=== PATIENT | male | born 2000 | race Caucasian/White ===

== ENCOUNTER 2024-01-16 14:40 | Outpatient (CLI) | payer BC, SELFPAY ==
--- NOTE | 2024-01-16 15:18 | MR_ITS ---
WS: [email or web address] MRI OF THE RIGHT LOWER EXTREMITY WITHOUT AND WITH GADOLINIUM ENHANCEMENT. INDICATION: RIGHT lower leg pain TECHNIQUE: Coronal T1 and STIR axial T2 fat-sat axial PD fat-sat sagittal STIR postgadolinium imaging was obtained FINDINGS: Normal bone marrow signal in the RIGHT tibia. Normal bone marrow signal of the fibula. Norm al visualized subcutaneous soft tissues. No abnormal gadolinium enhancement. No evidence of osteomyel itis. No suspicious cystic or solid lesions in the RIGHT lower extremity. No fluid collections. No ot her suspicious abnormalities. MR/MR lower leg RT wo/w con [id number] IMPRESSION: No suspicious abnormalities RIGHT lower extremity
[2024-01-16] MEDS: gadobenate dimeglumine 20 mL vial 10 ML IV (16:40)
== END 2024-01-16 14:41 | disposition home or self-care (01) ==
LOC: RAD 14:40
PROVIDERS: Visit Provider Nurse Practitioner
DX: M79.661 Pain in right lower leg (principal); M79.606 Pain in leg, unspecified; R29.898 Other symptoms and signs involving the musculoskeletal system
CPT/HCPCS: 73720; A9577

== ENCOUNTER 2024-04-11 23:15 | Emergency (ER) | payer BC, SELFPAY ==
[2024-04-11 23:24] VITALS: BP 111/69; PULSE 93; RESP 16; TEMP 36.6; O2SAT 98; BMI 16.2
--- NOTE | 2024-04-12 00:37 | CTR_ITS ---
PROCEDURE INFORMATION: Exam: CT Lumbar Spine Without Contrast Exam date and time: 04/12/2024 12:48 AM Age: 23 years old Clinical indication: Weakness; Patient HX: C/O worsening low back pain and increased walking difficulty over the last two months. Recent episode of urinary incontinence. PT scheduled for ms workup starting Sunday. ; Additional info: Low back pain, can't walk, one episode of urinary incontinen TECHNIQUE: Imaging protocol: Computed tomography of the lumbar spine without contrast. Radiation optimization: All CT scans at this facility use at least one of these dose optimization techniques: automated exposure control; mA and/or kV adjustment per patient size (includes targeted exams where dose is matched to clinical indication); or iterative reconstruction. COMPARISON: No relevant prior studies available. RADIATION DOSE METRICS: Total DLP (mGy-cm): 314.95 FINDINGS: Bones/joints: No acute fracture. Normal alignment. L1-L2: No significant disc bulge or herniation. No severe spinal canal stenosis. No significant neural foraminal narrowing. L2-L3: No significant disc bulge or herniation. No severe spinal canal stenosis. No significant neural foraminal narrowing. L3-L4: No significant disc bulge or herniation. No severe spinal canal stenosis. No significant neural foraminal narrowing. L4-L5: No significant disc bulge or herniation. No severe spinal canal stenosis. No significant neural foraminal narrowing. L5-S1: No significant disc bulge or herniation. No severe spinal canal stenosis. No significant neural foraminal narrowing. Soft tissues: Unremarkable. CT/CT lumbar spine wo con* [id number] IMPRESSION: Unremarkable spine.
--- NOTE | 2024-04-12 00:39 | W.ED.BACK ---
Documented by User: [email or web address] Noble 04/14/24 17:19 HPI - Back Pain/Injury General: Chief Complaint: Back Pain/Injury Stated Complaint: Back pain into leg, can barely walk Time Seen by Provider: 04/12/24 00:20 Source: patient Mode of arrival: ambulatory Limitations: no limitations History of Present Illness: Patient is a 23-year-old male presents the emergency department with worsening low back pain over the past month or so. Patient has MRI brain scheduled for Sunday for assessment of possible MS, as there is a family history and patient has had associated bilateral weakness of the lower extremities that has been associated with his pain. He has required the use of a walker, and even then this only allows him to shuffle short distances. He also notes 1 episode of urinary incontinence while he was sleeping. He notes distal paresthesias, and with his pain is noting that it is diffusely across the low back. He states that it radiates down his right leg to his knee occasionally. For pain, states that he has been given [place], tramadol, Toradol, muscle relaxers, and steroids and that all these have ever done is take the edge off. He states primarily he gets the most relief from heat to the low back. No bowel incontinence, fevers, paralysis, or other symptoms at this time. MD elicited complaint: back pain Onset (ago): month(s) Timing: constant Severity: severe Location: lumbar spine, right lower back and left lower back Radiation: right upper leg Exacerbating factors: movement and walking Associated symptoms: Reports difficulty walking; Deny abdominal pain, chills, dysuria, fatigue, fever(s), nausea or vomiting Related Data Previous Rx's Medication Instructions Recorded hydrocodone 5 mg-acetaminophen 325 1 tab PO Q8H PRN pain #7 tabs 04/12/24 mg tablet ketorolac 10 mg tablet 10 mg PO TID PRN pain #10 tabs 04/12/24 Allergies Allergy/AdvReac Type Severity Reaction Status Date / Time codeine Allergy ALGY-Rash Verified 04/11/24 23:33 Review of Systems General: Reports: 10 or more systems reviewed and unremarkable except in HPI and below Const: Denies: fever(s), chills or fatigue Eyes: Denies: change in vision ENMT: Denies: throat pain, ear or mastoid pain or nasal discharge Card: Denies: chest pain, palpitations, swelling of feet/ankles or lightheadedness Resp: Denies: dyspnea, productive cough or wheezing GI: Denies: abdominal pain, nausea, vomiting, diarrhea or constipation : Denies: flank pain, difficulty urinating, dysuria or urinary frequency Musc: Reports: back pain, extremity pain (Right lower) and muscle weakness; Denies: neck pain or joint pain Skin/Breast: Denies: rash Neuro: Reports: weakness in extremities, sensory changes (Distal paresthesias) and difficulty walking; Denies: headache(s) or numbness in extremities Physical Exam Const: COMMON NORMALS: no acute distress, patient oriented x3, no limitations and alert GENERAL APPEARANCE: cooperative NUTRITIONAL APPEARANCE: thin ORIENTATION/CONSCIOUSNESS: Yes awake HENMT: COMMON NORMALS: normocephalic and atraumatic HEAD & SCALP: normocephalic and atraumatic FACE & SINUS: normal facial exam Eye: COMMON NORMALS: Equal, round and reactive pupils present, EOMs intact bilaterally and conjunctivae normal CONJUNCTIVA: Yes conjunctivae normal PUPIL: Yes Equal, round and reactive pupils present Neck/C-Spine: COMMON NORMALS: full ROM and no meningeal signs Resp: COMMON NORMALS: normal respiratory effort, No retractions, No use of accessory muscles and clear to auscultation bilaterally AUSCULTATION: clear to auscultation bilaterally Cardio: COMMON NORMALS: regular rate, regular rhythm, S1 normal heart sound present, S2 normal heart sound present, No gallops present (Cardio), No murmurs present (Cardio), No rub (Cardio) and Peripheral pulses 2+ throughout RATE: regular rate RHYTHM: regular rhythm HEART SOUNDS: S1 normal heart sound present and S2 normal heart sound present PERIPHERAL PULSES: Peripheral pulses 2+ throughout Back/Pelvis: OTHER: Reproducible tenderness to palpation of the lumbar spine as well as to the bilateral paralumbar muscles with no signs of trauma or deformity. Negative straight leg raise testing. Extremity: COMMON NORMALS: normal to inspection, full ROM, capillary refill normal, no joint enlargement, no clubbing, cyanosis or edema and no pedal edema NARRATIVE EXTREMITY EXAM: 2+ dorsalis pedis and posterior tibial pulses bilaterally. Neuro: COMMON NORMALS: patient oriented x3, moves all extremities, no focal motor deficits, no sensory deficits noted and deep tendon reflexes 2+ bilaterally SENSORIUM/ORIENTATION: Yes alert MENINGEAL SIGNS: Yes no meningeal signs MOTOR EXAM: 5/5 motor strength present throughout, Pronator motor function not present, Motor fasciculations not present and Normal motor muscle tone present throughout OTHER: Mild intention tremor Skin: COMMON NORMALS: no rashes or lesions noted GENERAL SKIN EXAM: no rashes or lesions noted Course Vital Signs: Vital signs: Vital Signs Temperature 97.8 F 04/11/24 23:24 Pulse Rate 71 04/12/24 02:58 Respiratory Rate 17 04/12/24 02:58 Blood Pressure 118/77 04/12/24 02:58 Pulse Oximetry 98 04/12/24 02:58 Oxygen Delivery Me thod Room Air 04/12/24 01:15 MDM - Back Pain/Injury Labs 04/12/24 01:04 04/12/24 01:04 Radiology Impressions Lumbar Spine CT 04/12/24 00:37 IMPRESSION: Unremarkable spine. Laboratory Results WBC 16.29 10^3/uL (3.29-11.43) H 04/12/24 01:04 RBC 4.54 10^6/uL (3.85-5.65) 04/12/24 01:04 Hgb 14.40 g/dL (11.27-16.99) 04/12/24 01:04 Hct 40.0 % (37-53) 04/12/24 01:04 MCV 88.1 fl (82-101) 04/12/24 01:04 MCH 31.7 pg (27-33) 04/12/24 01:04 MCHC 36.0 g/dL (30-55) 04/12/24 01:04 RDW 12.3 % (12.1-15.1) 04/12/24 01:04 Plt Count 248 10^3/cmm (157-399) 04/12/24 01:04 MPV 9.5 fL (7.4-10.4) 04/12/24 01:04 Neut % (Auto) 71.8 % 04/12/24 01:04 Lymph % (Auto) 19.3 % 04/12/24 01:04 Kay % (Auto) 7.0 % 04/12/24 01:04 Eos % (Auto) 0.9 % 04/12/24 01:04 Baso % (Auto) 0.4 % 04/12/24 01:04 Neut # (Auto) 11.70 10^3/uL (1.8-7.7) H 04/12/24 01:04 Lymph # (Auto) 3.1 10^3/uL (0.8-4.8) 04/12/24 01:04 Kay # (Auto) 1.1 10^3/uL (0.2-0.9) H 04/12/24 01:04 Eos # (Auto) 0.2 10^3/uL (0.0-0.8) 04/12/24 01:04 Baso # (Auto) 0.1 10^3/uL (0.0-0.1) 04/12/24 01:04 Nucleated RBC % (auto) 0 % 04/12/24 01:04 Nucleated RBCs # 0.0 /100WBC 04/12/24 01:04 ESR < 1 mm/hr (0-10) 04/12/24 01:04 Sodium 140 mmol/L (136-145) 04/12/24 01:04 Potassium 3.9 mmol/L (3.5-5.1) 04/12/24 01:04 Chloride 101 mmol/L (98-107) 04/12/24 01:04 Carbon Dioxide 30 mmol/L (22-29) H 04/12/24 01:04 Anion Gap 12.9 (5-19) 04/12/24 01:04 BUN 8 mg/dL (6-20) 04/12/24 01:04 Creatinine 0.8 mg/dL (0.7-1.2) 04/12/24 01:04 GFR Calculation 120.9 mL/min (90-130) 04/12/24 01:04 Glucose 100 mg/dL (65-115) 04/12/24 01:04 Calculated Osmolality 288 mOsm/kg (285-295) 04/12/24 01:04 Calcium 9.8 mg/dL (8.5-10.5) 04/12/24 01:04 Total Bilirubin 0.2 mg/dL (0.15-1.2) 04/12/24 01:04 AST 28 U/L (0-40) 04/12/24 01:04 ALT 35 U/L (0-41) 04/12/24 01:04 Alkaline Phosphatase 74 U/L (40-130) 04/12/24 01:04 C-Reactive Protein 3.0 mg/L (0.0-4.9) 04/12/24 01:04 Total Protein 6.5 g/dL (6.6-8.7) L 04/12/24 01:04 Albumin 4.6 g/dL (3.5-5.2) 04/12/24 01:04 Globulin 1.9 g/dL (1.3-4.6) 04/12/24 01:04 Urine Color Yellow (Yellow) 04/12/24 01:04 Urine Appearance Clear (CLEAR) 04/12/24 01:04 Urine pH 6.5 (5-7) 04/12/24 01:04 Ur Specific [place] 1.005 (1.005-1.030) 04/12/24 01:04 Urine Protein Negative (Negative) 04/12/24 01:04 Urine Glucose (UA) Negative (Normal) 04/12/24 01:04 Urine Ketones Negative (Negative) 04/12/24 01:04 Urine Blood Negative (Negative) 04/12/24 01:04 Urine Nitrate Negative (Negative) 04/12/24 01:04 Urine Bilirubin Negative (Negative) 04/12/24 01:04 Urine Urobilinogen 0.2 mg/dL (Negative) 04/12/24 01:04 Ur Leukocyte Esterase Negative (Negative) 04/12/24 01:04 Urine RBC 0-2 /hpf (0-2) 04/12/24 01:04 Urine WBC 0-5 /hpf (0-5) 04/12/24 01:04 Ur Squamous Epith Cells 0-5 /hpf (0-5) 04/12/24 01:04 Amorphous Sediment Not Reportable 04/12/24 01:04 Urine Bacteria None seen /hpf (NONE) 04/12/24 01:04 Hyaline Casts 0-4 /lpf H 04/12/24 01:04 All radiology interpretation(s) finalized by discharge Discharge Plan Discharge Patient Disposition: Home Clinical Impression: Low back pain Condition: Stable Prescriptions: New hydrocodone-acetaminophen 5-325 mg tablet 1 tab PO Q8H PRN (Reason: pain) Qty: 7 0RF ketorolac 10 mg tablet 10 mg PO TID PRN (Reason: pain) Qty: 10 0RF Discharge Orders: Discharge ED (Routine); Ordered 04/12/24 Ordered By: Romain Dia Patient Instructions: Back Pain (ED), Opioid Safety, Pain Management Activity Restrictions/Additional Instructions: Return for fever, worsening weakness, any other concerning symptoms. Pain medication for severe pain. You may alternate the prescribed medications. Call your doctor on Sunday for follow-up. Coding Level of Care Code ED Emergency Response Officer for Chg Fwd Documented by User: Romain Dia, 04/14/24 18:43 HPI - Back Pain/Injury General: Chief Complaint: Back Pain/Injury Stated Complaint: Back pain into leg, can barely walk Time Seen by Provider: 04/12/24 00:20 Related Data Previous Rx's Medication Instructions Recorded hydrocodone 5 mg-acetaminophen 325 1 tab PO Q8H PRN pain #7 tabs 04/12/24 mg tablet ketorolac 10 mg tablet 10 mg PO TID PRN pain #10 tabs 04/12/24 Allergies Allergy/AdvReac Type Severity Reaction Status Date / Time codeine Allergy ALGY-Rash Verified 04/11/24 23:33 Course Vital Signs: Vital signs: Vital Signs Temperature 97.8 F 04/11/24 23:24 Pulse Rate 71 04/12/24 02:58 Respiratory Rate 17 04/12/24 02:58 Blood Pressure 118/77 04/12/24 02:58 Pulse Oximetry 98 04/12/24 02:58 Oxygen Delivery Me thod Room Air 04/12/24 01:15 MDM - Back Pain/Injury Medical Decision Making This patient was originally seen by Mr. Leela PA-C.? I agree with his history, evaluation, and treatment. This patient has an increased white blood cell count. He has been on steroids, likely the cause. His ESR is less than 1 his CRP is 3. No evidence of abscess by CT, or serum markers. He has an unremarkable spine by CT. Urinalysis is negative. His pain is improved. He will be discharged. Short course of pain medication while he continues his workup. Labs 04/12/24 01:04 04/12/24 01:04 Radiology Impressions Lumbar Spine CT 04/12/24 00:37 IMPRESSION: Unremarkable spine. Laboratory Results WBC 16.29 10^3/uL (3.29-11.43) H 04/12/24 01:04 RBC 4.54 10^6/uL (3.85-5.65) 04/12/24 01:04 Hgb 14.40 g/dL (11.27-16.99) 04/12/24 01:04 Hct 40.0 % (37-53) 04/12/24 01:04 MCV 88.1 fl (82-101) 04/12/24 01:04 MCH 31.7 pg (27-33) 04/12/24 01:04 MCHC 36.0 g/dL (30-55) 04/12/24 01:04 RDW 12.3 % (12.1-15.1) 04/12/24 01:04 Plt Count 248 10^3/cmm (157-399) 04/12/24 01:04 MPV 9.5 fL (7.4-10.4) 04/12/24 01:04 Neut % (Auto) 71.8 % 04/12/24 01:04 Lymph % (Auto) 19.3 % 04/12/24 01:04 Kay % (Auto) 7.0 % 04/12/24 01:04 Eos % (Auto) 0.9 % 04/12/24 01:04 Baso % (Auto) 0.4 % 04/12/24 01:04 Neut # (Auto) 11.70 10^3/uL (1.8-7.7) H 04/12/24 01:04 Lymph # (Auto) 3.1 10^3/uL (0.8-4.8) 04/12/24 01:04 Kay # (Auto) 1.1 10^3/uL (0.2-0.9) H 04/12/24 01:04 Eos # (Auto) 0.2 10^3/uL (0.0-0.8) 04/12/24 01:04 Baso # (Auto) 0.1 10^3/uL (0.0-0.1) 04/12/24 01:04 Nucleated RBC % (auto) 0 % 04/12/24 01:04 Nucleated RBCs # 0.0 /100WBC 04/12/24 01:04 ESR < 1 mm/hr (0-10) 04/12/24 01:04 Sodium 140 mmol/L (136-145) 04/12/24 01:04 Potassium 3.9 mmol/L (3.5-5.1) 04/12/24 01:04 Chloride 101 mmol/L (98-107) 04/12/24 01:04 Carbon Dioxide 30 mmol/L (22-29) H 04/12/24 01:04 Anion Gap 12.9 (5-19) 04/12/24 01:04 BUN 8 mg/dL (6-20) 04/12/24 01:04 Creatinine 0.8 mg/dL (0.7-1.2) 04/12/24 01:04 GFR Calculation 120.9 mL/min (90-130) 04/12/24 01:04 Glucose 100 mg/dL (65-115) 04/12/24 01:04 Calculated Osmolality 288 mOsm/kg (285-295) 04/12/24 01:04 Calcium 9.8 mg/dL (8.5-10.5) 04/12/24 01:04 Total Bilirubin 0.2 mg/dL (0.15-1.2) 04/12/24 01:04 AST 28 U/L (0-40) 04/12/24 01:04 ALT 35 U/L (0-41) 04/12/24 01:04 Alkaline Phosphatase 74 U/L (40-130) 04/12/24 01:04 C-Reactive Protein 3.0 mg/L (0.0-4.9) 04/12/24 01:04 Total Protein 6.5 g/dL (6.6-8.7) L 04/12/24 01:04 Albumin 4.6 g/dL (3.5-5.2) 04/12/24 01:04 Globulin 1.9 g/dL (1.3-4.6) 04/12/24 01:04 Urine Color Yellow (Yellow) 04/12/24 01:04 Urine Appearance Clear (CLEAR) 04/12/24 01:04 Urine pH 6.5 (5-7) 04/12/24 01:04 Ur Specific [place] 1.005 (1.005-1.030) 04/12/24 01:04 Urine Protein Negative (Negative) 04/12/24 01:04 Urine Glucose (UA) Negative (Normal) 04/12/24 01:04 Urine Ketones Negative (Negative) 04/12/24 01:04 Urine Blood Negative (Negative) 04/12/24 01:04 Urine Nitrate Negative (Negative) 04/12/24 01:04 Urine Bilirubin Negative (Negative) 04/12/24 01:04 Urine Urobilinogen 0.2 mg/dL (Negative) 04/12/24 01:04 Ur Leukocyte Esterase Negative (Negative) 04/12/24 01:04 Urine RBC 0-2 /hpf (0-2) 04/12/24 01:04 Urine WBC 0-5 /hpf (0-5) 04/12/24 01:04 Ur Squamous Epith Cells 0-5 /hpf (0-5) 04/12/24 01:04 Amorphous Sediment Not Reportable 04/12/24 01:04 Urine Bacteria None seen /hpf (NONE) 04/12/24 01:04 Hyaline Casts 0-4 /lpf H 04/12/24 01:04 Discharge Plan Discharge Patient Disposition: Home Clinical Impression: Low back pain Condition: Stable Prescriptions: New hydrocodone-acetaminophen 5-325 mg tablet 1 tab PO Q8H PRN (Reason: pain) Qty: 7 0RF ketorolac 10 mg tablet 10 mg PO TID PRN (Reason: pain) Qty: 10 0RF Discharge Orders: Discharge ED (Routine); Ordered 04/12/24 Ordered By: Romain Dia Patient Instructions: Back Pain (ED), Opioid Safety, Pain Management Activity Restrictions/Additional Instructions: Return for fever, worsening weakness, any other concerning symptoms. Pain medication for severe pain. You may alternate the prescribed medications. Call your doctor on Sunday for follow-up. Coding Level of Care Code ED Emergency Response Officer for Malena Beebe
[2024-04-12 01:10] LABS: Basophils # 0.1 10^3/uL (0.0-0.1); Basophils % 0.4 %; Eosinophils # 0.2 10^3/uL (0.0-0.8); Eosinophils % 0.9 %; Lymphocytes # 3.1 10^3/uL (0.8-4.8); Lymphocytes % 19.3 %; Mean Corpuscular Hemoglobin 31.7 pg (27-33); Mean Corpuscular Volume 88.1 fl (82-101); Mean Platelet Volume 9.5 fL (7.4-10.4); Monocytes # 1.1 10^3/uL (0.2-0.9); Neutrophils % 71.8 %; Nucleated Red Blood Cells % 0 %; Platelet Count 248 10^3/cmm (157-399); Red Blood Count 4.54 10^6/uL (3.85-5.65); Red Cell Distribution Width 12.3 % (12.1-15.1); White Blood Count 16.29 10^3/uL (3.29-11.43)
[2024-04-12] MEDS: dexamethasone 10 mg/mL INJ IVP (01:13)
[2024-04-12] MEDS: ketorolac 60 mg/2 mL INJ 30 MG IVP (01:13)
[2024-04-12] MEDS: orphenadrine 30 mg/mL Inj 2 mL 60 MG IVP (01:14)
[2024-04-12 01:15] VITALS: BP 111/64; PULSE 75; RESP 14; O2SAT 98
[2024-04-12 01:22] LABS: Bilirubin Urine Negative (Negative); Blood Urine Negative (Negative); Glucose Urine UA Negative (Normal); Ketones Urine Negative (Negative); Leukocyte Esterase Urine Negative (Negative); Nitrate Urine Negative (Negative); Protein Urine Negative (Negative); Specific Gravity, Urine 1.005 (1.005-1.030); Urine Appearance Clear (CLEAR); Urine Color Yellow (Yellow); Urobilinogen Urine 0.2 mg/dL (Negative); pH Urine 6.5 (5-7)
[2024-04-12 01:27] LABS: Add Urine Microscopic? YES; Bacteria Urine None Seen /hpf; Hyaline Casts Urine 0-4 /lpf; RBC Urine 0-2 /hpf (0-2); Squamous Epithelial Cell Urine 0-5 /hpf (0-5); WBC Urine 0-5 /hpf (0-5)
[2024-04-12 01:31] LABS: Alanine Aminotransferase 35 U/L (0-41); Albumin Level 4.6 g/dL (3.5-5.2); Alkaline Phosphatase 74 U/L (40-130); Anion Gap 12.9 (5-19); Aspartate Amino Transferase 28 U/L (0-40); Blood Urea Nitrogen 8 mg/dL (6-20); Calcium 9.8 mg/dL (8.5-10.5); Carbon Dioxide 30 mmol/L (22-29); Chloride 101 mmol/L (98-107); Creatinine Clr Calc Pharmacy 117.0843; Globulin 1.9 g/dL (1.3-4.6); Glomerular Filtration Rate 120.9 mL/min (90-130); Glucose 100 mg/dL (65-115); Osmolality Calculated 288 mOsm/kg (285-295); Potassium 3.9 mmol/L (3.5-5.1); Sodium 140 mmol/L (136-145); Total Bilirubin 0.2 mg/dL (0.15-1.2); Total Protein 6.5 g/dL (6.6-8.7)
[2024-04-12 01:46] LABS: Erythrocyte Sedimentation Rate < 1 mm/hr (0-10)
[2024-04-12 02:58] VITALS: BP 118/77; PULSE 71; RESP 17; O2SAT 98
== END 2024-04-12 03:01 | disposition home or self-care (01) ==
PROVIDERS: Physician Assistant; Emergency Provider Emergency Medicine
DX: M54.50 Low back pain, unspecified (principal)
CPT/HCPCS: 72131; 80053; 81001; 85025; 85651; 86140; 96374; 96375; 99285; J1100; J1885; J2360

== ENCOUNTER 2024-04-14 10:01 | Outpatient (CLI) | payer BC, SELFPAY ==
--- NOTE | 2024-04-14 10:07 | XR_ITS ---
WS: [email or web address] Exam: XR lumbar spine 2-3V* [id number] Date/Time of Exam: 04/14/2024 10:18 AM Reason For Exam: CHRONIC BACK PAIN No fracture noted. The disc spaces are preserved. Slight straightening. Posterior elements are intact . XR/XR lumbar spine 2-3V* [id number] IMPRESSION: 1. Mild straightening otherwise negative lumbar spine study.
--- NOTE | 2024-04-14 10:07 | XR_ITS ---
WS: [email or web address] Exam: XR thoracic spine 3V* [id number] Date/Time of Exam: 04/14/2024 10:18 AM Reason For Exam: CHRONIC BACK PAIN No acute fracture or dislocation. Disc bases are preserved. Normal paraspinal soft tissues. XR/XR thoracic spine 3V* [id number] IMPRESSION: 1. Negative T-spine study.
--- NOTE | 2024-04-14 10:07 | XR_ITS ---
WS: [email or web address] Exam: XR cervical spine 3V* [id number] Date/Time of Exam: 04/14/2024 10:18 AM Reason For Exam: CHRONIC BACK PAIN No acute fracture. The odontoid is intact. Normal paraspinal soft tissues. XR/XR cervical spine 3V* [id number] IMPRESSION: 1. Negative C-spine study.
--- NOTE | 2024-04-14 10:07 | MR_ITS ---
WS: [email or web address] MRI BRAIN WITH AND WITHOUT CONTRAST HISTORY: CHRONIC HEADACHES COMPARISON: None available. TECHNIQUE: Multiplanar imaging performed through the brain with MultiHance 11 ml's IV. No acute infarcts. There are several small foci of increased T2 and FLAIR signal hyperintensities sca ttered throughout the brain, bilateral. Subcortical distribution and predominantly within the frontal and parietal lobes. No lesions are identified at the pericallosal junction. There is a focal area of enhancement involving the LEFT parietal cortex but this has the appearance of a venous angioma. None of the white matter lesions seem to enhance. There is no hemorrhage. Posterior fossa and the visualized brainstem are negative. No temporal lobe lesions. Ventricles and extra-axial spaces are normal. Clivus and pituitary gland are normal. Visualized posterior fossa and brainstem are also normal. Postcontrast images are negative for masses or vascular malformations. Dural venous sinuses are normal. Paranasal sinuses: Well aerated with no significant disease. Mastoid air cells: Normal. Calvarium and scalp: Normal. MR/MR head wo/w con [id number] IMPRESSION: 1. There are several bilateral scattered subcortical white matter lesions in t he frontal and parietal lobes which do not enhance. No pericallosal lesions. No lesions in the posterior fossa or the visualized cervical cord. Not a typical distribution for multiple sclerosis but demyelination has not been excluded. Th kayla lesions can be noted with history of smoking, prior vascular insult, diabet es or migraines. 2. LEFT parietal venous angioma. 3. No prior infarct.
[2024-04-14] MEDS: gadobenate dimeglumine 20 mL vial IV (10:43)
== END 2024-04-14 10:02 | disposition home or self-care (01) ==
LOC: RAD 10:02
PROVIDERS: Visit Provider Nurse Practitioner
DX: R90.82 White matter disease, unspecified (principal); D18.02 Hemangioma of intracranial structures; R51.9 Headache, unspecified; H53.8 Other visual disturbances; M62.81 Muscle weakness (generalized); R29.898 Other symptoms and signs involving the musculoskeletal system; M79.604 Pain in right leg
CPT/HCPCS: 70553; 72040; 72072; 72100

== ENCOUNTER → 2024-06-03 09:32 | Outpatient (BNVA) | payer BC, SELFPAY | PROVIDERS: Visit Provider Psychiatry & Neurology Neurology | DX: R26.9 Unspecified abnormalities of gait and mobility (principal); R29.898 Other symptoms and signs involving the musculoskeletal system; E53.8 Deficiency of other specified B group vitamins | CPT/HCPCS: 36415; 82306; 82607; 82746; 83090; 83735; 83921; 84439; 84443; 84481 ==

== ENCOUNTER 2024-06-05 07:57 | Outpatient (CLI) | payer BC, SELFPAY ==
--- NOTE | 2024-06-05 08:00 | MR_ITS ---
WS: [email or web address] MRI THORACIC SPINE WITH CONTRAST TECHNIQUE: Sagittal T1, T2 and STIR imaging. Axial T2 imaging. Post gadolinium imaging was obtained. CLINICAL INFORMATION: R26.9 - Unspecified abnormalities of gait and mobility COMPARISON: MRI head 04/14/2024 FINDINGS: Normal thoracic alignment. No acute compression. No high-grade central canal stenosis. No significant disc extrusions or protrusions. Disc space heights are well-maintained. Few tiny shallow disc protru sions T3-T5. Normal CSF pulsation artifact in the dorsal spinal canal. Cord signal is normal. No demyelinating les ions in the thoracic cord. No cord atrophy. No enhancing lesions. MR/MR thoracic spine wo/w [id number] IMPRESSION: 1. No visualized enhancing or demyelinating lesions in the thoracic cord. 2. No cord atrophy.
--- NOTE | 2024-06-05 08:45 | MR_ITS ---
WS: [email or web address] MR CERVICAL SPINE WO/W HISTORY: M48.00 - Spinal stenosis, site unspecified TECHNIQUE: Sagittal T1, T2 and T2 inversion recovery; axial T2, T2 gradient and fiesta. Post gadolini um imaging with fat saturation technique. FINDINGS:Straightening of the normal cervical lordosis. No high grade central canal narrowing. Cord s ignal is normal. No significant cord atrophy. No demyelinating lesions or enhancing lesions in the cervical cord. C2-3: Spinal canal and foramen are patent. C3-4: Spinal canal and foramen are patent. C4-5: Minimal disc bulging. Spinal canal and foramen are patent. Mild facet arthropathy. C5-6: Minimal disc bulging. Spinal canal and foramen are patent. Mild facet arthropathy. C6-7: Spinal canal and foramen are patent. Mild facet arthropathy. C7-T1: Spinal canal and foramen are patent. MR/MR cervical spine wo/w [id number] IMPRESSION: 1. No demyelinating lesions within the cervical cord. No cord atrophy. 2. No enhancing lesions.
--- NOTE | 2024-06-05 09:30 | MR_ITS ---
WS: [email or web address] MRI LUMBAR SPINE WITH CONTRAST TECHNIQUE: Sagittal T1, T2 and STIR imaging. Axial T1 and T2 imaging. Post gadolinium imaging was obt ained. CLINICAL INFORMATION: M48.00 - Spinal stenosis, site unspecified COMPARISON: None. FINDINGS: Mild lumbar curve. No acute compression. No high-grade central canal stenosis. No demyelinating lesions in the lower thoracic cord. No enhancement within the cauda equina. L1-L2: Mild annular bulging. Mild facet arthropathy. Spinal canal and foramen are patent. L2-L3: Mild annular bulging. Mild facet arthropathy. Spinal canal and foramen are patent. L3-L4: Mild annular bulging. Mild facet arthropathy. Spinal canal and foramen are patent. L4-L5: Mild annular bulging. Slight impingement on the subarticular recess LEFT greater than RIGHT an d traversing L5 nerve roots. Mild facet arthropathy. Foramen are patent. L5-S1: Mild annular bulging. Tiny shallow central protrusion. Spinal canal and foramen are patent. Mi ld facet arthropathy. Visualized pelvic bony structures: Normal. Paravertebral soft tissues: Normal. MR/MR lumbar spine wo/w con [id number] IMPRESSION: 1. Mild annular bulge L4-5 that narrowing of the LEFT greater than RIGHT subar ticular recess. Slight impingement on the traversing LEFT L5 nerve root. 2. Mild facet arthropathy L3-L5. 3. No demyelinating lesions in the lower thoracic cord. Normal appearing cauda equina.
[2024-06-05] MEDS: gadobenate dimeglumine 20 mL vial IV (09:41)
== END 2024-06-05 07:58 | disposition home or self-care (01) ==
PROVIDERS: Visit Provider Psychiatry & Neurology Neurology
DX: R26.9 Unspecified abnormalities of gait and mobility (principal); M51.369 Other intervertebral disc degeneration, lumbar region without mention of lumbar back pain or lower extremity pain; M47.816 Spondylosis without myelopathy or radiculopathy, lumbar region
CPT/HCPCS: 72156; 72157; 72158

== ENCOUNTER 2024-06-05 20:50 | Emergency (ER) | payer BC, SELFPAY ==
[2024-06-05 20:57] VITALS: BP 99/56; PULSE 95; RESP 16; TEMP 36.6; O2SAT 99; BMI 16.2
--- NOTE | 2024-06-05 21:21 | XRR_ITS ---
PROCEDURE INFORMATION: Exam: XR Left Hip Exam date and time: 06/05/2024 9:24 PM Age: 23 years old Clinical indication: Hip pain; Left hip; Additional info: Left hip pain. With pelvis TECHNIQUE: Imaging protocol: Radiologic exam of the left hip. Views: 2 or 3 views hip with pelvis when performed. COMPARISON: MR lumbar spine wo/w con [id number] 06/05/2024 9:02 AM FINDINGS: Bones/joints: Unremarkable. No acute fracture. Soft tissues: Unremarkable. XR/XR hip LT 2-3V wo/w pel* [id number] IMPRESSION: No acute findings.
--- NOTE | 2024-06-05 21:25 | ED_ITS ---
HPI - Extremity Injury (Lower) General: Chief Complaint: Extremity Injury, Lower Stated Complaint: left hip pain Time Seen by Provider: 06/05/24 21:25 Source: patient and family Mode of arrival: wheelchair Limitations: no limitations History of Present Illness: Patient is a 23-year-old male presents to ED today for evaluation of left hip pain. Patient states earlier today while standing in the kitchen, he felt a pop to his left hip and then immediately began noticing painful ambulation. He states he normally ambulates with the help of a walker. He is undergoing extensive evaluation by Dr. Campos/neurology at this time as he is having significant neurologic impairments. Concern for MS given an extensive family history. He did have MRI imaging earlier today of cervical, thoracic, and lum bar spines to rule out demyelinating process. They have lumbar puncture scheduled in the next 2 weeks as well as additional blood work. MD complaint: hip injury Onset (ago): hour(s) Place: home Severity: moderate Associated symptoms: Reports inability to bear weight Other symptoms: none Related Data Home Medications Medication Instructions Recorded Confirmed buspirone 10 mg tablet 10 mg PO TID Anxiety 06/03/24 06/03/24 carisoprodol 350 mg tablet (Soma) 350 mg PO TID Pain 06/03/24 06/03/24 celecoxib 200 mg capsule (Celebrex) 200 mg PO DAILY Pain 06/03/24 06/03/24 hydrocodone 5 mg-acetaminophen 325 1 tab PO Q6H PRN pain 06/03/24 mg tablet pregabalin 150 mg capsule (Lyrica) 150 mg PO BID Pain 06/03/24 06/03/24 venlafaxine 150 mg 150 mg PO DAILY Depression 06/03/24 06/03/24 capsule,extended release 24 hr Previous Rx's Medication Instructions Recorded ketorolac 10 mg tablet 10 mg PO TID PRN pain #10 tabs 04/12/24 cholecalciferol (vitamin D3) 1,250 50,000 unit PO .weekly #14 caps 06/04/24 mcg (50,000 unit) capsule folic acid 1 mg tablet 1 mg PO DAILY #30 tabs 06/04/24 Allergies Allergy/AdvReac Type Severity Reaction Status Date / Time codeine Allergy ALGY-Rash Verified 06/03/24 07:59 Review of Systems Const: Denies: fever(s) Card: Denies: chest pain Resp: Denies: dyspnea Musc: Reports: joint pain (L hip); Denies: neck pain, back pain, extremity pain, extremity swelling or joint swelling Neuro: Reports: weakness in extremities (chronic) and difficulty walking (chronic) PFSH ED PFSH: Social History Smoking and tobacco/nicotine status: current every day tobacco/nicotine user Physical Exam Const: COMMON NORMALS: no acute distress, patient oriented x3, no limitations and alert GENERAL APPEARANCE: cooperative NUTRITIONAL APPEARANCE: thin Extremity: COMMON NORMALS: capillary refill normal GENERAL: Yes normal exam except as noted LEFT LOWER EXTREMITY: Yes hip joint (TTP; no bony deformities appreciated; no shortening/rotation) Left hip: Yes neurovascular exam (normal) OTHER: pt has significant spasming and myoclonic jerking-reportedly this is chronic and part of why he is receiving evaluation from neurology he can flex/ext L hip joint/raise leg off table without assistance; good pushes/pulls of his feet; NV intact Neuro: COMMON NORMALS: patient oriented x3 and moves all extremities SENSORIUM/ORIENTATION: Yes alert GAIT: Yes Unable to assess gait Course Vital Signs: Vital signs: Vital Signs Temperature 97.9 F 06/05/24 20:57 Pulse Rate 95 06/05/24 20:57 Respiratory Rate 16 06/05/24 20:57 Blood Pressure 99/56 06/05/24 20:57 Pulse Oximetry 99 06/05/24 20:57 Oxygen Delivery Me thod Room Air 06/05/24 20:57 MDM - Extremity Injury (Lower) Medical Decision Making Personal interpretation of left hip/pelvis XR is unremarkable. Recommend continued evaluation through neurology. I do not see any indication for further emergent workup from our end today. Medical Records I reviewed the patient's medical records. I did review Dr. Campos's note. XR interpretation done by ED provider, pending radiology final review ED provider radiology interpretation(s): MRIs from earlier today involving the cervical, thoracic, and lumbar spines were reviewed. Discharge Plan Discharge Patient Disposition: Home Clinical Impression: Acute pain of left hip Condition: Stable Prescriptions: No Action venlafaxine 150 mg capsule,extended release 24hr 150 mg PO DAILY buspirone 10 mg tablet 10 mg PO TID carisoprodol [Soma] 350 mg tablet 350 mg PO TID pregabalin [Lyrica] 150 mg capsule 150 mg PO BID celecoxib [Celebrex] 200 mg capsule 200 mg PO DAILY hydrocodone-acetaminophen 5-325 mg tablet 1 tab PO Q6H PRN (Reason: pain) cholecalciferol (vitamin D3) 1,250 mcg (50,000 unit) capsule 50,000 unit PO .weekly Qty: 14 3RF folic acid 1 mg tablet 1 mg PO DAILY Qty: 30 3RF ketorolac 10 mg tablet 10 mg PO TID PRN (Reason: pain) Qty: 10 0RF Discharge Orders: Discharge ED (Routine); Ordered 06/05/24 Ordered By: Dominique Milan Coding Level of Care Code ED Porcelain Slusher for Malena Beebe
[2024-06-05 22:33] VITALS: BP 138/85; PULSE 79; O2SAT 99
[2024-06-05] MEDS: morphine 4 mg/mL SDV 1 mL IM (22:56)
[2024-06-05] MEDS: ondansetron 2 mg/ML SDV 2 mL 4 MG IM (22:56)
[2024-06-05 23:07] VITALS: BP 97/59; PULSE 78; O2SAT 98
== END 2024-06-05 23:08 | disposition home or self-care (01) ==
PROVIDERS: Emergency Provider Physician Assistant
DX: M25.552 Pain in left hip (principal); Z72.0 Tobacco use
CPT/HCPCS: 73502; 96372; 99284; J2270; J2405

== ENCOUNTER 2024-06-16 09:19 | Outpatient (CLI) | payer BC, SELFPAY ==
--- NOTE | 2024-06-16 09:30 | FL_ITS ---
WS: [id number] LUMBAR PUNCTURE CLINICAL INFORMATION: G35 - Multiple sclerosis TECHNIQUE: Informed consent: The procedure and its potential risk and complications were discussed with the trevin ent. Verbal and written consent was obtained. Timeout: A timeout was performed to confirm correct patient, procedure, and site. Patient was prepped and draped in the usual sterile fashion. Lidocaine 1% was used for local anesthes ia. Utilizing fluoroscopic guidance, a 3.5 inch 22-gauge spinal needle was advanced into the subarach noid space at L3-L4 via LEFT oblique sublaminar approach. Free flow of clear CSF was obtained. 12 cc of CSF was collected and sent the lab for further analysis. FLUOROSCOPIC TIME: 1min [id number] # of spot films: 1 FL/FL guided lumbarpunc dx* [id number] IMPRESSION: Uncomplicated fluoroscopically guided lumbar puncture. Opening pressure 15 cmH2O Closing pressure 12 cmH2O
[2024-06-16 11:20] LABS: Mononuclear WBC CSF % 0 % (50-90); Polynuclear WBC CSF % 100 % (0-10); Red Blood Cell CSF 0 10^3/uL (0-0); White Blood Cell CSF 1 /uL (0-5)
[2024-06-16 11:42] LABS: Glucose CSF 59 mg/dL (40-70); Total Protein CSF 26 mg/dL (15-45)
[2024-06-16 12:04] LABS: Appearance CSF CLEAR (CLEAR)
[2024-06-16 12:05] LABS: Color CSF COLORLESS (COLORLESS)
[2024-06-19 18:32] LABS: Cytomegalovirus DNA,QL RT PCR Not Detected (Not Detected); Cytomegalovirus Source Results Below; IgG CSF 0.8 mg/dL (0.8-7.7); IgG Index , CSF 0.51 (<0.70); Immunoglobulin G 533 mg/dL (600-1640); Immunoglobulin G, CSF 0.8 mg/dL (0.8-7.7); Synthesis Rate IgG, CSF -1.6 mg/24 h (-9.9 TO +3.3); West Nile Virus AB (IGG) <1.30 index; West Nile Virus AB (IGM) <0.90 index
[2024-06-19 21:29] LABS: JC Virus DNA Ultra QN PCR NOT DETECTED Log IU/mL; JC Virus Quant CSF PCR NOT DETECTED
[2024-06-19 23:40] LABS: Oligoclonal Bands IGG, CSF ABSENT (ABSENT)
[2024-06-20 00:50] LABS: Angiotensin Convert Enzy CSF 11 U/L (<=15)
[2024-06-20 01:06] LABS: VDRL on CSF NON-REACTIVE
[2024-06-20 09:56] LABS: HIV RNA (CPY/ML) NOT DETECTED (NOT DETECTED); HIV RNA LOG NOT DETECTED copies/mL (NOT DETECTED)
[2024-06-20 19:59] LABS: Toxoplasma Gondii IgM CSF <0.80
[2024-06-20 20:11] LABS: Toxoplasma Gondii IgG CSF <0.90
[2024-06-25 14:50] LABS: Epstein Barr Virus Qual PCR NOT DETECTED
== END 2024-06-16 09:20 | disposition home or self-care (01) ==
LOC: RAD 09:20
PROVIDERS: PCP Nurse Practitioner; Visit Provider Psychiatry & Neurology Neurology
DX: G35 Multiple sclerosis (principal); R26.9 Unspecified abnormalities of gait and mobility; R29.898 Other symptoms and signs involving the musculoskeletal system; E53.8 Deficiency of other specified B group vitamins; G37.9 Demyelinating disease of central nervous system, unspecified; R93.0 Abnormal findings on diagnostic imaging of skull and head, not elsewhere classified
CPT/HCPCS: 36415; 62328; 80503; 82040; 82042; 82164; 82784; 82945; 83916; 84157; 86382; 86403; 86592; 86777; 86778; 86788; 86789; 87015; 87070; 87075; 87116; 87205; 87206; 87327; 87496; 87536; 87798; 87799; 87801; 89050

== ENCOUNTER 2024-06-18 18:47 | Emergency (ER) | payer BC, SELFPAY ==
[2024-06-18 18:53] VITALS: BP 98/50; PULSE 62; RESP 16; TEMP 36.3; O2SAT 100; BMI 16.2
--- NOTE | 2024-06-18 19:20 | ED_ITS ---
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 He had a spinal tap with concerns for an abnormal MRI and possible multiple sclerosis 2 days ago. Yesterday he developed back pain. This morning he developed nausea and vomiting and a headache. No altered mental status. No focal motor deficits. No fevers. Mom had tried to get a hold of neurologist but could not. Related Data Home Medications Medication Instructions Recorded Confirmed buspirone 10 mg tablet 10 mg PO TID Anxiety 06/03/24 06/03/24 carisoprodol 350 mg tablet (Soma) 350 mg PO TID Pain 06/03/24 06/03/24 celecoxib 200 mg capsule (Celebrex) 200 mg PO DAILY Pain 06/03/24 06/03/24 hydrocodone 5 mg-acetaminophen 325 1 tab PO Q6H PRN pain 06/03/24 mg tablet pregabalin 150 mg capsule (Lyrica) 150 mg PO BID Pain 06/03/24 06/03/24 venlafaxine 150 mg 150 mg PO DAILY Depression 06/03/24 06/03/24 capsule,extended release 24 hr Previous Rx's Medication Instructions Recorded ketorolac 10 mg tablet 10 mg PO TID PRN pain #10 tabs 04/12/24 cholecalciferol (vitamin D3) 1,250 50,000 unit PO .weekly #14 caps 06/04/24 mcg (50,000 unit) capsule folic acid 1 mg tablet 1 mg PO DAILY #30 tabs 06/04/24 fxcnoqmpnd-ojhyqsfikhybl-urkeojna 1 cap PO Q8H PRN pain #14 caps 06/18/24 50 mg-300 mg-40 mg capsule (Fioricet) ondansetron 8 mg disintegrating 8 mg PO Q6H #14 tabs 06/18/24 tablet Allergies Allergy/AdvReac Type Severity Reaction Status Date / Time codeine Allergy ALGY-Rash Verified 06/03/24 07:59 Review of Systems 2 Narrative: Constitutional symptoms: Negative except as documented in HPI. Skin symptoms: Negative except as documented in HPI. Eye symptoms: Negative except as documented in HPI. ENMT symptoms: Negative except as documented in HPI. Respiratory symptoms: Negative except as documented in HPI. Cardiovascular symptoms: Negative except as documented in HPI. Gastrointestinal symptoms: Negative except as documented in HPI. Genitourinary symptoms: Negative except as documented in HPI. Musculoskeletal symptoms: Negative except as documented in HPI. Neurologic symptoms: Negative except as documented in HPI. Psychiatric symptoms: Negative except as documented in HPI. Endocrine symptoms: Negative except as documented in HPI. PFSH ED 2 PFSH: Social History Smoking and tobacco/nicotine status: current every day tobacco/nicotine user Physical Exam 2 Narrative: EXAM NARRATIVE: General: Alert, no acute distress. Skin: Warm, dry. Head: Normocephalic, atraumatic. Neck: Supple, trachea midline. Eye: Extraocular movements are intact. Ears, nose, mouth and throat: Tacky oral mucosa Cardiovascular: Regular, Normal peripheral perfusion. Respiratory: Lungs are clear to auscultation, respirations are non-labored, breath sounds are equal, Symmetrical chest wall expansion. Gastrointestinal: Soft, Nontender, Non distended Musculoskeletal: Normal ROM, no deformity. Back: I do not see any evidence of external infection. No redness. No focal tenderness in the back. Neurological: Alert and oriented, No focal neurological deficit observed. Psychiatric: Cooperative, appropriate mood & affect. Course 2 Vital Signs: Vital signs: Vital Signs Temperature 97.4 F L 06/18/24 18:53 Pulse Rate 62 06/18/24 18:53 Respiratory Rate 16 06/18/24 18:53 Blood Pressure 98/50 06/18/24 18:53 Pulse Oximetry 100 06/18/24 18:53 Oxygen Delivery Me thod Room Air 06/18/24 18:53 MDM - Nausea/Vomiting/Diarrhea Medical Decision Making Consultation: I spoke with Dr. Campos. He recommends Fioricet. We do not have that here. So I ordered some for home. He recommends possible blood patch tomorrow. He recommends bedrest except for going to the bathroom. I discussed all of this with mom and patient Lab work: Lab work is unremarkable. This was reviewed and interpreted by myself the emergency room physician Assessment and plan: Spinal headache Dehydration ? IV Reglan and Benadryl. IV Toradol. IV Zofran. And some IV Norflex. Patient is doing better when he is lying flat at this time. - Discharged home - Discussed plan with patient. Answered any questions. - Evaluation and treatment of this problem were appropriate in the emergency setting. Lab Data 06/18/24 19:06/18/24 19: Laboratory Results WBC 9.75 10^3/uL (3.29-11.43) 06/18/24: RBC 4.68 10^6/uL (3.85-5.65) 06/18/24: Hgb 14.40 g/dL (11.27-16.99) 06/18/24: Hct 41.7 % (37-53) 06/18/24: MCV 89.1 fl (82-101) 06/18/24: MCH 30.8 pg (27-33) 06/18/24: MCHC 34.5 g/dL (30-55) 06/18/24: RDW 13.2 % (12.1-15.1) 06/18/24: Plt Count 337 10^3/cmm (157-399) 06/18/24: MPV 9.7 fL (7.4-10.4) 06/18/24: Neut % (Auto) 86.0 % 06/18/24: Lymph % (Auto) 10.2 % 06/18/24: [place] % (Auto) 3.0 % 06/18/24: Eos % (Auto) 0.0 % 06/18/24 Baso % (Auto) 0.4 % 06/18/24: Neut # (Auto) 8.39 10^3/uL (1.8-7.7) H 06/18/24: Lymph # (Auto) 1.0 10^3/uL (0.8-4.8) 06/18/24: [place] # (Auto) 0.3 10^3/uL (0.2-0.9) 06/18/24: Eos # (Auto) 0.0 10^3/uL (0.0-0.8) 06/18/24: Baso # (Auto) 0.0 10^3/uL (0.0-0.1) 06/18/24 19:33 Nucleated RBC % (auto) 0 % 06/18/24 19:33 Nucleated RBCs # 0.0 /100WBC 06/18/24 19:33 PT 13.40 SECONDS (12.1-14.9) 06/18/24 19:33 INR 0.96 (0.8-1.2) 06/18/24 19:33 APTT 28.0 SECONDS (23.9-36.7) 06/18/24 19:33 Sodium 142 mmol/L (136-145) 06/18/24 19:33 Potassium 4.4 mmol/L (3.5-5.1) 06/18/24 19:33 Chloride 102 mmol/L (98-107) 06/18/24 19:33 Carbon Dioxide 28 mmol/L (22-29) 06/18/24 19:33 Anion Gap 16.4 (5-19) 06/18/24 19:33 BUN 8 mg/dL (6-20) 06/18/24 19:33 Creatinine 0.7 mg/dL (0.7-1.2) 06/18/24 19:33 GFR Calculation 141.0 mL/min (90-130) H 06/18/24 19:33 Glucose 135 mg/dL (65-115) H 06/18/24 19:33 Calculated Osmolality 294 mOsm/kg (285-295) 06/18/24 19:33 Calcium 10.9 mg/dL (8.5-10.5) H 06/18/24 19:33 Total Bilirubin 0.8 mg/dL (0.15-1.2) 06/18/24 19:33 AST 19 U/L (0-40) 06/18/24 19:33 ALT 35 U/L (0-41) 06/18/24 19:33 Alkaline Phosphatase 82 U/L (40-130) 06/18/24 19:33 Total Protein 7.8 g/dL (6.6-8.7) 06/18/24 19:33 Albumin 5.4 g/dL (3.5-5.2) H 06/18/24 19:33 Globulin 2.4 g/dL (1.3-4.6) 06/18/24 19:33 No radiology studies performed this visit Discharge Plan Discharge Patient Disposition: Home Clinical Impression: Spinal headache, Dehydration Condition: Stable Prescriptions: New ondansetron 8 mg tablet,disintegrating 8 mg PO Q6H Qty: 14 0RF Rx Instructions: Take 1/2-1 tab every 6 hours as needed for nausea and vomiting [id number]-tzszcodmuzmnw-fcdq [Fioricet] 50-300-40 mg capsule 1 cap PO Q8H PRN (Reason: pain) Qty: 14 0RF No Action venlafaxine 150 mg capsule,extended release 24hr 150 mg PO DAILY buspirone 10 mg tablet 10 mg PO TID carisoprodol [Soma] 350 mg tablet 350 mg PO TID pregabalin [Lyrica] 150 mg capsule 150 mg PO BID celecoxib [Celebrex] 200 mg capsule 200 mg PO DAILY hydrocodone-acetaminophen 5-325 mg tablet 1 tab PO Q6H PRN (Reason: pain) cholecalciferol (vitamin D3) 1,250 mcg (50,000 unit) capsule 50,000 unit PO .weekly Qty: 14 3RF folic acid 1 mg tablet 1 mg PO DAILY Qty: 30 3RF ketorolac 10 mg tablet 10 mg PO TID PRN (Reason: pain) Qty: 10 0RF Discharge Orders: Discharge ED (Routine); Ordered 06/18/24 Ordered By: Sona Shafer Referrals: Luz Faria FNP [Primary Care Provider] - Discharge Diet: Usual diet Discharge Activity: Increase activity as tolerated Patient Instructions: Epidural Blood Patch (DC), Lumbar Puncture (ED), Opioid Safety, Pain Management Activity Restrictions/Additional Instructions: Thank you for choosing [facility] for your healthcare needs today. Please realize this is an emergency room and that we are providing you with a medical screening exam and this may not be complete and all inclusive of all the testing and or work up that you may need to determine your ailment or severity of your illness. You have been screened and evaluated and felt safe for discharge. Health conditions do change or evolve sometimes and as such it is important that you follow up with your Primary Doctor to be re checked, 3-5 days is a general good time frame for follow up. You are always welcome to return to the ED for re assessment if your symptoms are worsening or you have new concerns Coding Level of Care Code ED Procedures Analyst for Malena Beebe
[2024-06-18] MEDS: ondansetron 2 mg/ML SDV 2 mL 8 MG IVP (19:24)
[2024-06-18] MEDS: ketorolac 30 mg/mL INJ IVP (19:27)
[2024-06-18] MEDS: sodium chloride 0.9% 1,000 ML 999 ML IV (19:29)
[2024-06-18 19:33] VITALS: BP 103/64; PULSE 65; O2SAT 98
[2024-06-18 19:42] LABS: Basophils % 0.4 %; Hematocrit 41.7 % (37-53); Lymphocytes % 10.2 %; Mean Corpuscular HGB Conc 34.5 g/dL (30-55); Mean Corpuscular Hemoglobin 30.8 pg (27-33); Mean Corpuscular Volume 89.1 fl (82-101); Mean Platelet Volume 9.7 fL (7.4-10.4); Monocytes # 0.3 10^3/uL (0.2-0.9); Neutrophils # 8.39 10^3/uL (1.8-7.7); Nucleated Red Blood Cells % 0 %; Platelet Count 337 10^3/cmm (157-399); Red Blood Count 4.68 10^6/uL (3.85-5.65); Red Cell Distribution Width 13.2 % (12.1-15.1); White Blood Count 9.75 10^3/uL (3.29-11.43)
[2024-06-18 19:56] LABS: INR 0.96 (0.8-1.2)
[2024-06-18] MEDS: diphenhydrAMINE 50 mg/mL SDV 1mL IVP (19:59)
[2024-06-18] MEDS: metoclopramide 5 mg/mL SDV 2 mL 10 MG IVP (19:59)
[2024-06-18 20:00] VITALS: BP 122/66; PULSE 99; O2SAT 63
[2024-06-18 20:05] LABS: Alanine Aminotransferase 35 U/L (0-41); Albumin Level 5.4 g/dL (3.5-5.2); Alkaline Phosphatase 82 U/L (40-130); Anion Gap 16.4 (5-19); Aspartate Amino Transferase 19 U/L (0-40); Blood Urea Nitrogen 8 mg/dL (6-20); Calcium 10.9 mg/dL (8.5-10.5); Carbon Dioxide 28 mmol/L (22-29); Chloride 102 mmol/L (98-107); Creatinine Clr Calc Pharmacy 133.8106; Globulin 2.4 g/dL (1.3-4.6); Glucose 135 mg/dL (65-115); Osmolality Calculated 294 mOsm/kg (285-295); Potassium 4.4 mmol/L (3.5-5.1); Sodium 142 mmol/L (136-145); Total Bilirubin 0.8 mg/dL (0.15-1.2); Total Protein 7.8 g/dL (6.6-8.7)
[2024-06-18 20:30] VITALS: BP 122/71; PULSE 71; O2SAT 99
[2024-06-18 21:03] VITALS: BP 97/54; PULSE 68; O2SAT 95
[2024-06-18] MEDS: ondansetron 2 mg/ML SDV 2 mL 4 MG IVP (21:20)
[2024-06-18] MEDS: orphenadrine 30 mg/mL Inj 2 mL 60 MG IVP (21:22)
[2024-06-18] MEDS: HYDROcodone-acetaminophen 5-325 mg Tablet 2 TAB PO (21:27)
[2024-06-18] MEDS: ondansetron 4 MG Tablet 8 MG PO (21:27)
[2024-06-18 21:56] VITALS: BP 98/56; PULSE 72; O2SAT 95
== END 2024-06-18 21:34 | disposition home or self-care (01) ==
PROVIDERS: Emergency Provider Emergency Medicine; PCP Nurse Practitioner
DX: R51.9 Headache, unspecified (principal); E86.0 Dehydration; Z72.0 Tobacco use
CPT/HCPCS: 36415; 80053; 85025; 85610; 85730; 96374; 96375; 96376; 99284; J1200; J1885; J2360; J2405; J2765; J7030; Q0162

== ENCOUNTER → 2024-07-03 14:31 | Outpatient (BNVA) | payer BC, SELFPAY | PROVIDERS: PCP Nurse Practitioner; Visit Provider Psychiatry & Neurology Neurology | DX: R26.9 Unspecified abnormalities of gait and mobility (principal); E53.8 Deficiency of other specified B group vitamins; G37.9 Demyelinating disease of central nervous system, unspecified | CPT/HCPCS: 36415; 82525; 86592; 87798 ==

== ENCOUNTER 2024-10-08 08:00 | Oncology outpatient (recurring) (ONCR) | payer MEDICAID, SELFPAY ==
[2024-10-06 08:30] VITALS: BP 89/54; PULSE 72; RESP 17; TEMP 36.6; O2SAT 97
[2024-10-06] MEDS: immune globulin (Gamunex-C) 40 GM, Immune Globulin (Gamunex-C) 20 GM in empty flexible ... IV (08:45)
[2024-10-06 09:00] VITALS: BP 94/55; PULSE 72; RESP 17; TEMP 36.7; O2SAT 96
[2024-10-06 10:45] VITALS: BP 97/59; PULSE 60; RESP 17; TEMP 36.7; O2SAT 96
[2024-10-06 12:04] VITALS: BP 95/56; PULSE 70; RESP 16; TEMP 36.1; O2SAT 98
[2024-10-07 08:05] VITALS: BP 112/68; PULSE 88; RESP 17; TEMP 37.3; O2SAT 97
[2024-10-07 08:35] VITALS: BP 98/57; PULSE 80; RESP 17; TEMP 37.1; O2SAT 97
[2024-10-07] MEDS: immune globulin (Gamunex-C) 40 GM, Immune Globulin (Gamunex-C) 20 GM in empty flexible ... IV (08:35)
[2024-10-07 09:50] VITALS: BP 89/54; PULSE 64; RESP 16; TEMP 36.3; O2SAT 97
[2024-10-07 11:54] VITALS: BP 103/64; PULSE 62; RESP 17; TEMP 36.6; O2SAT 100
[2024-10-08 08:40] VITALS: BP 97/61; PULSE 77; RESP 16; TEMP 36.5; O2SAT 97
[2024-10-08] MEDS: immune globulin (Gamunex-C) 40 GM, Immune Globulin (Gamunex-C) 20 GM in empty flexible ... IV (08:40)
[2024-10-08 09:40] VITALS: BP 103/63; PULSE 81; RESP 16; TEMP 36.6; O2SAT 96
[2024-10-08 12:02] VITALS: BP 111/69; PULSE 80; TEMP 36.7; O2SAT 99
== END 2024-10-08 16:37 | disposition home or self-care (01) ==
PROVIDERS: PCP Nurse Practitioner; Visit Provider Psychiatry & Neurology Neurology
DX: Z53.9 Procedure and treatment not carried out, unspecified reason (principal); G35 Multiple sclerosis; Z79.620 Long term (current) use of immunosuppressive biologic
CPT/HCPCS: 96365; 96366; J1561

== ENCOUNTER 2024-10-10 07:32 | Oncology outpatient (recurring) (ONCR) | payer MEDICAID, SELFPAY ==
[2024-10-09 08:20] VITALS: BP 104/70; PULSE 103; RESP 16; TEMP 37.4; O2SAT 98
[2024-10-09] MEDS: immune globulin (Gamunex-C) 40 GM, Immune Globulin (Gamunex-C) 20 GM in empty flexible ... IV (08:20)
[2024-10-09 08:38] VITALS: BP 112/67; PULSE 99; RESP 16; TEMP 37.2; O2SAT 98
[2024-10-09 08:55] VITALS: BP 101/63; PULSE 98; RESP 16; TEMP 37.4; O2SAT 98
[2024-10-09 11:57] VITALS: BP 108/68; PULSE 87; RESP 16; TEMP 37.3; O2SAT 100
[2024-10-10] MEDS: immune globulin (Gamunex-C) 40 GM, Immune Globulin (Gamunex-C) 20 GM in empty flexible ... IV (07:55)
[2024-10-10 11:29] VITALS: BP 113/73; PULSE 74; RESP 17; TEMP 36.6; O2SAT 100
[2024-10-10] MEDS: diphenhydrAMINE 50 mg/mL SDV 1mL 25 MG IVP (11:30)
--- NOTE | 2024-10-10 11:38 | PC.NURSE ---
Bhavya with Dr Campos's office was notified via [employer], [place] that the patient developed what appears to be an ecchymotic looking rash on bilateral upper extremities to include the palms of his hands towards the end of Day 5 of his IVIG treatment. Vital signs are stable, patient denies any complaints. Infusion was stopped, per Dr Campos's orders 25 mg IV Benadryl given. Pt was discharged with his mother at his side to help escort him out, mother is an RN and denied having any questions. She was advised to continue to monitor him and call back to Neurology or after hour watch dial stoner physician with any concern.s
[2024-10-10 11:53] VITALS: BP 113/73; PULSE 74; RESP 16; TEMP 36.6; O2SAT 100
== END 2024-10-10 23:59 | disposition home or self-care (01) ==
PROVIDERS: PCP Nurse Practitioner; Visit Provider Psychiatry & Neurology Neurology
DX: Z53.9 Procedure and treatment not carried out, unspecified reason (principal); G35 Multiple sclerosis; Z79.620 Long term (current) use of immunosuppressive biologic
CPT/HCPCS: 96365; 96366; 96375; J1200; J1561

== ENCOUNTER → 2024-10-30 15:20 | Outpatient (BNVA) | payer MEDICAID, SELFPAY | PROVIDERS: PCP Nurse Practitioner; Visit Provider Psychiatry & Neurology Neurology | DX: G35 Multiple sclerosis (principal); E55.9 Vitamin D deficiency, unspecified; E53.8 Deficiency of other specified B group vitamins | CPT/HCPCS: 36415; 82306; 82607; 82746 ==

== ENCOUNTER 2024-11-07 08:00 | Oncology outpatient (recurring) (ONCR) | payer MEDICAID, SELFPAY ==
[2024-11-06] MEDS: Immune Globulin (Gamunex-C) 20 GM in empty flexible container 1 EACH IV (09:16)
[2024-11-06 11:10] VITALS: BP 101/64; PULSE 78; RESP 16; TEMP 36.8; O2SAT 98
[2024-11-07 08:47] VITALS: BP 99/58; PULSE 67; RESP 16; TEMP 36.8; O2SAT 99
[2024-11-07] MEDS: Immune Globulin (Gamunex-C) 20 GM in empty flexible container 1 EACH IV (08:47)
[2024-11-07 09:34] VITALS: BP 98/56; PULSE 70; RESP 16; TEMP 36.8; O2SAT 99
[2024-11-07 11:54] VITALS: BP 109/68; PULSE 86; RESP 16; TEMP 36.8; O2SAT 99
== END 2024-11-24 23:59 | disposition home or self-care (01) ==
PROVIDERS: PCP Nurse Practitioner; Visit Provider Psychiatry & Neurology Neurology
DX: Z53.9 Procedure and treatment not carried out, unspecified reason (principal); G35 Multiple sclerosis; Z79.620 Long term (current) use of immunosuppressive biologic
CPT/HCPCS: 96365; 96366; J1561

== ENCOUNTER 2024-12-25 08:00 | Oncology outpatient (recurring) (ONCR) | payer MEDICAID, SELFPAY ==
[2024-12-04] MEDS: Immune Globulin (Gamunex-C) 20 GM in empty flexible container 1 EACH IV (08:24)
[2024-12-04 08:26] VITALS: BP 104/67; PULSE 88; RESP 18; O2SAT 98
[2024-12-04 08:39] VITALS: BP 96/55; PULSE 76; RESP 16; TEMP 36.8; O2SAT 98
[2024-12-04 09:55] VITALS: BP 94/56; PULSE 72; RESP 16; TEMP 36.5; O2SAT 98
[2024-12-04 10:26] VITALS: BP 116/55; PULSE 73; RESP 16; TEMP 36.9; O2SAT 97
[2024-12-05 08:28] VITALS: BP 107/58; PULSE 64; RESP 16; TEMP 36.4; O2SAT 98
[2024-12-05] MEDS: Immune Globulin (Gamunex-C) 20 GM in empty flexible container 1 EACH IV (08:28)
[2024-12-05 09:15] VITALS: BP 96/58; PULSE 74; RESP 16; TEMP 36.3; O2SAT 98
[2024-12-05 10:20] VITALS: BP 97/60; PULSE 70; RESP 16; TEMP 36.1; O2SAT 100
[2024-12-25 08:33] VITALS: BP 97/57; PULSE 78; TEMP 36.6; O2SAT 96
[2024-12-25] MEDS: IMMUNE GLOBULIN IV (08:35)
[2024-12-25] MEDS: FLEXIBLE CONTAINER IV (08:35)
[2024-12-25 10:59] VITALS: BP 93/54; PULSE 75; TEMP 36.4; O2SAT 98
== END 2024-12-25 23:59 | disposition home or self-care (01) ==
PROVIDERS: PCP Nurse Practitioner; Visit Provider Psychiatry & Neurology Neurology
DX: G35 Multiple sclerosis (principal); Z79.620 Long term (current) use of immunosuppressive biologic
CPT/HCPCS: 96365; 96366; J1561

== ENCOUNTER 2025-01-16 08:00 | Oncology outpatient (recurring) (ONCR) | payer MEDICAID, SELFPAY ==
[2024-12-26 08:36] VITALS: BP 100/59; PULSE 83; RESP 17; TEMP 36.8; O2SAT 98
[2024-12-26] MEDS: FLEXIBLE CONTAINER IV (08:36)
[2024-12-26] MEDS: IMMUNE GLOBULIN IV (08:36)
[2024-12-26 10:45] VITALS: BP 101/60; PULSE 80; RESP 17; TEMP 36.6; O2SAT 98
[2025-01-15] MEDS: FLEXIBLE CONTAINER IV (09:03)
[2025-01-15] MEDS: IMMUNE GLOBULIN IV (09:03)
[2025-01-15 15:43] VITALS: BP 103/65; PULSE 75; TEMP 36.6; O2SAT 99
[2025-01-16 08:50] VITALS: BP 92/54; PULSE 70; TEMP 36.3; O2SAT 99
[2025-01-16] MEDS: IMMUNE GLOBULIN IV (08:54)
[2025-01-16] MEDS: FLEXIBLE CONTAINER IV (08:54)
[2025-01-16 10:58] VITALS: BP 97/65; PULSE 71; TEMP 36.3; O2SAT 99
== END 2025-01-16 23:59 | disposition home or self-care (01) ==
PROVIDERS: PCP Nurse Practitioner; Visit Provider Psychiatry & Neurology Neurology
DX: G35 Multiple sclerosis; Z79.620 Long term (current) use of immunosuppressive biologic; Z79.899 Other long term (current) drug therapy; Z53.9 Procedure and treatment not carried out, unspecified reason
CPT/HCPCS: 96365; 96366; J1561

== ENCOUNTER 2025-02-06 07:59 | Oncology outpatient (recurring) (ONCR) | payer MEDICAID, SELFPAY ==
[2025-02-05] MEDS: FLEXIBLE CONTAINER IV (08:27)
[2025-02-05] MEDS: IMMUNE GLOBULIN IV (08:27)
[2025-02-05 08:48] VITALS: BP 100/62; PULSE 75; TEMP 36.8; O2SAT 98
[2025-02-05 10:57] VITALS: PULSE 85; TEMP 36.6; O2SAT 99
[2025-02-05 12:49] VITALS: BP 99/63; PULSE 81; TEMP 37.1; O2SAT 98
[2025-02-06 08:45] VITALS: BP 98/62; PULSE 80; RESP 16; TEMP 36.9; O2SAT 98
[2025-02-06] MEDS: IMMUNE GLOBULIN IV (08:46)
[2025-02-06] MEDS: FLEXIBLE CONTAINER IV (08:46)
[2025-02-06 09:45] VITALS: BP 110/64; PULSE 75; RESP 16; O2SAT 98
[2025-02-06 10:54] VITALS: BP 107/66; PULSE 84; RESP 17; TEMP 37.2; O2SAT 98
== END 2025-02-06 23:59 | disposition home or self-care (01) ==
PROVIDERS: PCP Nurse Practitioner; Visit Provider Psychiatry & Neurology Neurology
DX: G35 Multiple sclerosis (principal); Z79.620 Long term (current) use of immunosuppressive biologic; Z79.899 Other long term (current) drug therapy
CPT/HCPCS: 96365; 96366; J1561

== ENCOUNTER 2025-02-27 08:00 | Oncology outpatient (recurring) (ONCR) | payer MEDICAID, SELFPAY ==
[2025-02-26 08:54] VITALS: BP 109/66; PULSE 73; RESP 16; TEMP 36.3; O2SAT 99
[2025-02-26] MEDS: Immune Globulin (Gamunex-C) 20 GM, immune globulin (Gamunex-C) 10 GM in empty flexible ... IV (08:57)
[2025-02-26 09:57] VITALS: BP 103/63; PULSE 73; RESP 16; TEMP 36.2; O2SAT 98
[2025-02-26 11:02] VITALS: BP 109/73; PULSE 76; RESP 16; TEMP 36.6; O2SAT 98
[2025-02-27 08:33] VITALS: BP 106/64; PULSE 74; RESP 16; TEMP 37; O2SAT 99
[2025-02-27] MEDS: FLEXIBLE CONTAINER IV (08:33)
[2025-02-27] MEDS: IMMUNE GLOBULIN IV (08:33)
[2025-02-27 08:48] VITALS: BP 99/64; PULSE 77; RESP 16; TEMP 37.1; O2SAT 98
[2025-02-27 11:02] VITALS: BP 103/64; PULSE 70; RESP 16; TEMP 37.1; O2SAT 99
== END 2025-03-27 23:59 | disposition home or self-care (01) ==
PROVIDERS: PCP Nurse Practitioner; Visit Provider Psychiatry & Neurology Neurology
DX: G35.A Relapsing-remitting multiple sclerosis; Z79.620 Long term (current) use of immunosuppressive biologic; Z79.899 Other long term (current) drug therapy; Z53.9 Procedure and treatment not carried out, unspecified reason
CPT/HCPCS: 96365; 96366; J1561

== ENCOUNTER 2025-03-04 15:03 | Outpatient (CLI) | payer MEDICAID, SELFPAY ==
--- NOTE | 2025-03-04 15:07 | MR_ITS ---
WS: [id number] MRI LUMBAR SPINE NONCONTRAST HISTORY: CHRONIC BACK PAIN/MULTIPLE SCLEROSIS COMPARISON: 06/05/2024 TECHNIQUE: Sagittal and axial multisequence imaging is submitted. Mild LEFT curvature lumbar spine. Otherwise posterior alignment is normal. Disc spaces and vertebral body heights are well-preserved. Conus terminates normally at L1-2 disc level. L1-L2: Minimal annular disc bulging. No stenosis. L2-L3: Minimal annular disc bulging with minimal facet arthritis. No stenosis. L3-L4: Minimal disc bulging and facet arthritis. Small amount of fluid in the facet joints. L4-L5: Mild annular disc bulging. There is slight impingement upon the subarticular recesses and the traversing L5 nerve roots. No high-grade stenosis. Mild facet arthritis. L5-S1: Shallow central disc protrusion. Mild facet arthritis. Paravertebral soft tissues are normal. MR/MR lumbar spine wo con* [id number] IMPRESSION: 1. No high-grade central or foraminal stenosis or large disc protrusions. 2. Mild subarticular recess encroachment at L4-5. Very minimal disc contact on the traversing L5 nerve roots. Similar to the prior study. 3. No acute fractures.
== END 2025-03-04 15:04 | disposition home or self-care (01) ==
LOC: RAD 15:04
PROVIDERS: PCP Nurse Practitioner; Visit Provider Nurse Practitioner
DX: G35.D Multiple sclerosis, unspecified (principal); M51.360 Other intervertebral disc degeneration, lumbar region with discogenic back pain only; M51.370 Other intervertebral disc degeneration, lumbosacral region with discogenic back pain only; M47.816 Spondylosis without myelopathy or radiculopathy, lumbar region; M47.817 Spondylosis without myelopathy or radiculopathy, lumbosacral region
CPT/HCPCS: 72148